=== PATIENT | female | born 2000 | race Caucasian/White ===

== ENCOUNTER 2023-11-09 18:22 | Emergency (ER) | payer OTHER, SELFPAY ==
[2023-11-09 18:29] VITALS: BP 123/87
[2023-11-09 19:07] LABS: % Basophils 0.6 % (0-2); % Eosinophils 2.5 % (0-6); % Immature Granulocytes 0.2 % (0-0.5); % Lymphocytes 37.2 % (20.5-51.1); % Monocytes 5.8 % (1.7-9.3); % Neutrophils 53.7 % (42.2-75.2); Absolute Basophils 0.1 10^3/uL (0-0.2); Absolute Eosinophils 0.2 10^3/uL (0-0.7); Absolute Lymphocytes 3.2 10^3/uL (1.2-3.4); Absolute Monocytes 0.5 10^3/uL (0.1-0.6); Absolute Neutrophils 4.6 10^3/uL (1.4-6.5); Hematocrit 36.7 % (37.0-47.0); Hemoglobin 12.5 g/dL (12.0-16.0); Mean Corp Hgb Conc. 34.1 g/dL (33.0-37.0); Mean Corpuscular Hgb 28.5 pg (27.0-31.0); Mean Corpuscular Volume 83.8 fL (81.0-99.0); Mean Platelet Volume 9.5 fL (7.4-10.4); Nucleated Red Blood Cells % 0 %; Platelet Count 302 10^3/uL (130-400); Red Blood Cell Count 4.38 10^6/uL (4.20-5.40); Red Cell Dist. Width 12.5 % (11.5-14.5); White Blood Cell Count 8.5 10^3/uL (4.8-10.8)
[2023-11-09 19:18] LABS: HCG, Serum Qualitative Screen Negative
[2023-11-09 19:25] LABS: ALT (SGPT) 21 U/L (0-35); AST (SGOT) 26 U/L (14-36); Albumin 4.5 g/dl (3.5-5.0); Alkaline Phosphatase 95 U/L (38-126); Blood Urea Nitrogen 18 mg/dl (7-17); Calcium 9.8 mg/dl (8.4-10.2); Carbon Dioxide 27 mmol/L (22-30); Chloride 99 mmol/L (98-107); Glucose 97 mg/dl (70-99); Potassium 4.6 mmol/L (3.5-5.1); Sodium 136 mmol/L (135-145); Total Bilirubin 0.4 mg/dl (0.2-1.3); Total Protein 7.4 g/dl (6.3-8.2); eGFR > 60.00
--- NOTE | 2023-11-09 22:56 | ED.GENMED ---
History of Present Illness
General
Chief Complaint: Numbness
Source: patient
Exam Limitations: none
Time Seen by Provider: 11/09/23 22:40
Nursing documentation reviewed up to this point in time: agreed with
Travel History
Have you had any contact with someone who has COVID-19?: No
Do you have any symptoms of coronavirus? Fever > 100 degrees, chills, cough, shortness of breath, sore throat, loss of taste or smell, muscle aches, or headache?: No
History of Present Illness
History of Present Illness:
Patient is a 23-year-old female with a past medical history of complicated migraines , anxiety depression presents to the ER for evaluation. Patient reports as a child her headaches and/migraines would be associated with tongue numbness hand
numbness and losing her peripheral vision. She was worked up as a child by [facility] neurology and had a EEGs. Recently however for the past several months she has had intermittent headaches again.
patient has had a relatively constant headache for the past 4 to 5 days to the left side of her head With this she describes intermittent episodes of numbness to the left side of her head. She has had this several times in the past but today had
at least 12 episodes of left-sided head numbness associated with headache which have prompted her to come to the ER. She does have light sensitivity. She has not had any recent fevers. No recent trauma. Denies any neck pain chiropractor
manipulation.
Past History
Past History
ED Past Medical History: None; Negative Asthma, HTN, Hypercholesterolemia or NIDDM
ED Past Surgical History: Appendectomy
Social History
Tobacco: Non-smoker
Alcohol: Occasional
Personal: Single
Living: other (School)
Review of Systems
Review of Systems
Allergies reviewed?: Yes
Other source history: family
All Other Systems: ROS reviewed and negative except as documented in HPI and ROS
Constitutional: Reports no symptoms; Denies fever, fatigue or chills
EENT: Reports no symptoms
Respiratory: Reports no symptoms
ABD/GI: Reports no symptoms; Denies nausea or vomiting
: Reports no symptoms
Musculoskeletal: Reports no symptoms
Skin: Reports no symptoms
Neurological: Reports headache and other (intermittent multiple episodes of numbness to left side of head )
Hematologic/Lymphatic: Reports no symptoms
Psychiatric: Reports no symptoms
Phy Exam
General Physical Exam
General Presentation: no apparent distress
General age: appears stated age
General Skin: warm and dry
General Habitus: normal
General Mental: alert
General Hydration: appears well hydrated
Eye Exam
Eye Exam: PERRL and EOMI
Eye Exam General: PERRL: bilateral and EOM intact: bilateral
Pupil Exam: Bilateral: round and reactive
Neurological Exam
Neurological Exam: alert, oriented x3, no motor deficits, no sensory deficits and other (Normal sensation to bilateral face presently)
[place] Coma Scale
Eye Opening: Spontaneous
Verbal Response: Oriented
Motor Response: Obeys Commands
GCS Total Score: 15
Course
Orders/Labs/Results
Orders:
Orders
11/09/23 18:31
Test Result ONCE
11/09/23 18:42
Complete Blood Count/With Diff Urgent
Comprehensive Metabolic Panel Urgent
HCG, Serum Qualitative Screen Urgent
11/09/23 22:51
Metoclopramide [Reglan] 10 mg IV NOW STA
11/09/23 22:56
0.9% Sodium Chloride 1000 ml [Nss] 1,000 ml IV BOLUS
Diphenhydramine [Benadryl] 25 mg IV NOW STA
11/09/23 22:59
CT Head W/o Iv Contrast Urgent
Comment:
Reason For Exam: headache
11/10/23 00:13
Ketorolac [Toradol] 15 mg IV NOW STA
Abnormal Lab Results
11/09/23
18:42
Hct 36.7 L %
(37.0-47.0)
BUN 18 H mg/dl
(7-17)
11/09/23 18:42
11/09/23 18:42
Vital Signs
Initial and Last Documented VS:
Initial Vital Signs
Temp Pulse Resp BP Pulse Ox
98.2 F 81 18 123/87 97
11/09/23 18:29 11/09/23 18:29 11/09/23 18:29 11/09/23 18:29 11/09/23 18:29
Last Documented Vital Signs
Temp Pulse Resp BP Pulse Ox
98.2 F 66 16 116/79 99
11/09/23 18:29 11/09/23 23:18 11/09/23 23:18 11/09/23 23:18 11/09/23 23:18
MDM/Problems Addressed
Differential Diagnosis Includes:
not limited to: headache, complicated migraine/migraine
MDM/Problems Addressed:
Symptoms are consistent with migraine. Patient send intermittent migraines since she was preteen. She has seen neurology in the past and is due to see them in the next several weeks. Patient had a constant headache as documented with intermittent
numbness to left side of her head. She is nontoxic no neck pain no meningismus no fever no acute distress vital signs are stable CAT scan head negative. Patient was given Reglan Benadryl with fluids feeling much better will give dose of Toradol
and plan for discharge home. Discussed call neurology to see if they can get a sooner appointment.(DR Lopez)
Chronic conditions affecting care:
chronic migraines
*Critical Care Note
Total Time (30-74mins, 75-104mins- exclusive of procedures): Not Applicable
ED Attending Note
-
Portions of this chart may have been created with voice recognition software.� Occasional wrong word or��sound alike� substitutions may have occurred due to the inherent limitations of voice recognition software.
Discharge Plan
Departure
Patient Disposition: Home (Routine Discharge)
Date of Disposition: 11/10/23
Time of Disposition: 00:16
Patient with high blood pressure during this ER visit?: No
Condition: Fair
Covid-19: Not Applicable
Discharge Problem:
Migraine
Instructions: Migraines (DC)
Referrals:
Amanda Canseco PA-C [Family Provider] -
Mahesh Quick MD [Active] -
Activity Restrictions/Additional Instructions:
You may alternate between ibuprofen and Tylenol as discussed. Follow-up closely with your neurologist call them tomorrow return if any worsening of symptoms
Interventions
Interventions:
*Risk Screen - Suicide Last Done: 11/09/23 18:29
*General Assessment Last Done: 11/09/23 18:29
*Neglect/Abuse Screening Last Done: 11/09/23 18:29
ED- Fall Risk Assessment Last Done: 11/09/23 23:20
*ED COVID-19 Vaccine History Last Done: 11/09/23 18:29
ED- Neurological Assessment Last Done: 11/09/23 23:21
[2023-11-09 23:12] VITALS: BMI 37.4
[2023-11-09] MEDS: NSS 1000 IV (23:17)
[2023-11-09] MEDS: REGLAN 10 MG IV (23:17)
[2023-11-09] MEDS: BENADRYL 25 MG IV (23:17)
[2023-11-09 23:18] VITALS: BP 116/79
[2023-11-10] MEDS: TORADOL 15 MG IV (00:16)
== END 2023-11-10 00:29 | disposition home or self-care (01) ==
LOC: EMR 18:22
PROVIDERS: Emergency Medicine; EMERGENCY PHYSICIAN Emergency Medicine; FAMILY PHYSICIAN Physician Assistant Medical
DX: G43.909 Migraine, unspecified, not intractable, without status migrainosus (principal); R20.0 Anesthesia of skin; F41.9 Anxiety disorder, unspecified; F32.A Depression, unspecified; Z91.040 Latex allergy status
CPT/HCPCS: 99284; 96374; 96375 ×2; 96361; 70450; 80053; 84703; 85025

== ENCOUNTER → 2024-12-06 17:43 | Outpatient (REF) | payer BC, SELFPAY | LOC: RAD 17:43 | PROVIDERS: ATTENDING PHYSICIAN Obstetrics & Gynecology Gynecology; FAMILY PHYSICIAN Physician Assistant Medical | DX: N93.9 Abnormal uterine and vaginal bleeding, unspecified (principal); E28.2 Polycystic ovarian syndrome | CPT/HCPCS: 76830; 76856 ==